=== PATIENT | female | born 1940 | race Two or more races ===

== ENCOUNTER 2016-10-30 16:38 | Inpatient (IN) | payer MEDICARE, MEDICAID ==
[~2016-10-30] VITALS: Ht 165.1 cm; Wt 81.6 kg
[2016-10-30] MEDS ORDERED: LR 1000ml 1,000 ML IV SCH (17:00)
--- NOTE | 2016-10-30 17:04 | Emergency Room Report ---
History of Present Illness General Chief Complaint: Syncope Source: EMS Present Illness HPI 76 YOF [place] for alleged syncopal episode following nausea/ vomiting. No head trauma or other trauma sustained. Patient c/o chills, "shaking". Denies chest pain, SOB, abd pain, palpitations. HPI otherwise limited d/t language, patient Ugandan speaking primarily. Allergies: Coded Allergies: DONEPEZIL (Verified Allergy, Unknown, 10/30/16) PROCAINE (Verified Allergy, Unknown, 10/30/16) Patient History Limited by: language barrier Past Medical History: unable to obtain Past Surgical History: unable to obtain Pertinent Family History: unable to obtain Social History: Denies: alcohol use, drug use, smoking Now: No Immunizations: UTD Reviewed Nursing Documentation: PMH: Agreed, PSxH: Agreed Nursing Documentation-PMH Past Medical History: No Stated History Review of Systems All Other Systems: limited - langauage barrier Physical Exam Vital Signs Date Time Temp Pulse Resp B/P Pulse Ox O2 Delivery O2 Flow Rate FiO2 10/30/16 16:37 98.1 77 20 168/82 98 Room Air Sp02 EP Interpretation: reviewed, abnormal General Appearance: normal inspection, well appearing, alert, GCS 15, non-toxic , mild distress, other - Shaking, diaphoretic Head: normocephalic, atraumatic Eyes: bilateral eye EOMI, bilateral eye PERRL ENT: normal ENT inspection, hearing grossly normal, normal pharynx, no angioedema, normal voice, dry mucus membranes Neck: normal inspection, full range of motion, supple, no meningismus, no bony tend Respiratory: normal inspection, lungs clear, normal breath sounds, no rhonchi, no respiratory distress, no retraction, no accessory muscle use, no wheezing Cardiovascular #1: regular rate, rhythm, no edema Gastrointestinal: normal inspection, normal bowel sounds, non tender, soft, no mass, non-distended, no guarding, no hernia Genitourinary: no CVA tenderness Musculoskeletal: normal inspection, back normal, normal range of motion, Mariah' s Sign negative Neurologic: normal inspection, alert, oriented x3, responsive, green coffee blender III-XII nml as tested, motor strength/tone normal, speech normal Psychiatric: normal inspection, judgement/insight normal, mood/affect normal Skin: normal inspection, warm/dry, palpation normal Lymphatic: normal inspection Medical Decision Making Medicare Attestation Rl Vasquez MD hereby attest that the medical record entry for date of service, 07/14/16 accurately reflects signatures/notations that I made in my capacity as MD when I treated/diagnosed the above listed Medicare beneficiary. I attest that this information is true, accurate and complete to the best of my knowledge. I understand that any falsification, omission, or concealment of material fact may subject me to administrative, civil, or criminal liability. This patient warrants hospital admission for extreme of age and has a condition that cannot be treated as outpatient. Diagnostic Impression: Primary Impression: Syncope Qualified Codes: R55 - Syncope and collapse Additional Impressions: Nausea and vomiting Qualified Codes: R11.2 - Nausea with vomiting, unspecified Hyperglycemia ER Course Syncopal episode preceded by vomiting. VS hypertensive, afebrile DDx: vasovagal, AMI, sepsis PLAN: Labs, ECG, gentle hydration, zofran Likely admission EKG Diagnostic Results Rate: normal Rhythm: NSR ST Segments: no acute changes ASA given to the pt in ED: No Rhythm Strip Diag. Results EP Interpretation: yes Rate: 77 Rhythm: NSR, no PVC's, no ectopy Chest X-Ray Diagnostic Results Findings: other - patient refused CXR Reevaluation Time: 17:48 Last Vital Signs Date Time Temp Pulse Resp B/P Pulse Ox O2 Delivery O2 Flow Rate FiO2 10/30/16 16:37 98.1 77 20 168/82 98 Room Air Status: improved Reevaluation Impression Labs: No leuks. H&H stable. Troponin 0. Patient refused CXR ECG is NSR, no ischemia CT head negative for ICH on ED r eview No additional vomiting here Tolerating PO Endorsed to Dr Hand for syncope/ACS rule out admission to tele bed at 730pm Disposition: ADMITTED INPATIENT Condition: Serious RL VASQUEZ M.D. Oct 30, 2016 17:04
[2016-10-30 17:31] LABS: MEAN CORPUSCULAR HEMOGLOBIN 29.6 PG (27.0-31.0); MEAN CORPUSCULAR HGB CONC 33.2 G/DL (32.0-36.0); MEAN CORPUSCULAR VOLUME 89 FL (80-99); MEAN PLATELET VOLUME 7.5 FL (6.5-10.1); PLATELET COUNT 222 K/UL (150-450); RED BLOOD COUNT 4.67 M/UL (4.20-5.40); RED CELL DISTRIBUTION WIDTH 11.7 % (11.6-14.8); WHITE BLOOD COUNT 6.8 K/UL (4.8-10.8)
[2016-10-30 17:40] LABS: TROPONIN I < 0.30 ng/mL (<=0.30)
[2016-10-30 17:43] LABS: ALANINE AMINOTRANSFERASE 11 U/L (3-33); ALBUMIN/GLOBULIN RATIO 1.4 (1.0-2.7); ANION GAP 22 (5-15); ASPARTATE AMINO TRANSFERASE 17 U/L (5-40); CALCIUM 9.6 mg/dL (8.6-10.2); CARBON DIOXIDE 21 mEQ/L (20-30); CHLORIDE 95 mEQ/L (98-107); CREATININE 0.7 mg/dL (0.5-0.9); HEMOLYSIS 16; POTASSIUM 3.6 mEQ/L (3.4-4.9); SODIUM 138 mEQ/L (135-145); TOTAL PROTEIN 7.6 g/dL (6.6-8.7)
[2016-10-30 17:53] LABS: CKMB 2.4 ng/mL (< 3.8)
[2016-10-30 18:34] LABS: BAND NEUTROPHILS % (MANUAL) 1 % (0-8); BASOPHILS % (MANUAL) 0 % (0-2); EOSINOPHILS % (MANUAL) 0 % (0-3); LYMPHOCYTES % (MANUAL) 9 % (20-45); NEUTROPHILS % (MANUAL) 87 % (45-75); PLATELET ESTIMATE ADEQUATE; PLATELET MORPHOLOGY NORMAL; TOTAL CELLS COUNTED 100
[2016-10-30 19:03] VITALS: BP 132/71
[2016-10-30] MEDS ORDERED: LEXAPRO10 MG ORAL (19:36)
[2016-10-30] MEDS ORDERED: PLAQUENIL200 MG ORAL (19:36)
[2016-10-30] MEDS ORDERED: METOPROLOL SUCC25 MG ORAL (19:36)
[2016-10-30] MEDS ORDERED: MAGNESIUM27 MG PO (19:36)
[2016-10-30] MEDS ORDERED: AMLODIPINE BES2.5 MG ORAL (19:36)
[2016-10-30 21:35] VITALS: BP 135/74
[2016-10-30] MEDS ORDERED: DuoNeb 0.5-3(2.5)mg/3ml neb HHN PRN (21:45)
[2016-10-30] MEDS ORDERED: LORazepam Inj 2mg/ml 1ml IV PRN (21:45)
[2016-10-30] MEDS ORDERED: Nitroglycerin Subl 0.4mg tab (Bottle Of 25) SL PRN (21:45)
[2016-10-30] MEDS ORDERED: Mylanta II UD 30ml ORAL PRN (21:45)
[2016-10-30] MEDS ORDERED: Miralax 17gm pkt ORAL PRN (21:45)
[2016-10-30] MEDS ORDERED: Morphine Sulfate 2mg/ml Inj IVP PRN (21:45)
[2016-10-30 21:58] VITALS: BP 151/56
[2016-10-30] MEDS: Heparin 5000 units/ml inj SUBQ SCH (22:36)
[2016-10-31] VITALS (8 sets, daily range): BP systolic 107–138; BP diastolic 65–80
[2016-10-31 08:04] LABS: MEAN CORPUSCULAR HEMOGLOBIN 28.6 PG (27.0-31.0); MEAN CORPUSCULAR HGB CONC 32.4 G/DL (32.0-36.0); MEAN CORPUSCULAR VOLUME 88 FL (80-99); MEAN PLATELET VOLUME 8.2 FL (6.5-10.1); PLATELET COUNT 268 K/UL (150-450); RED BLOOD COUNT 5.18 M/UL (4.20-5.40); RED CELL DISTRIBUTION WIDTH 11.8 % (11.6-14.8); WHITE BLOOD COUNT 8.1 K/UL (4.8-10.8)
[2016-10-31 08:22] LABS: ALANINE AMINOTRANSFERASE 10 U/L (3-33); ALBUMIN/GLOBULIN RATIO 1.6 (1.0-2.7); ANION GAP 18 (5-15); ASPARTATE AMINO TRANSFERASE 15 U/L (5-40); CALCIUM 9.9 mg/dL (8.6-10.2); CARBON DIOXIDE 23 mEQ/L (20-30); CHLORIDE 99 mEQ/L (98-107); CHOLESTEROL 212 mg/dL (< 200); CREATININE 0.8 mg/dL (0.5-0.9); HEMOLYSIS 5; LDL CHOLESTEROL (CALC.) 128 mg/dL (60-99); SODIUM 140 mEQ/L (135-145); TOTAL PROTEIN 7.6 g/dL (6.6-8.7)
[2016-10-31 08:32] LABS: THYROID STIMULATING HORMONE 0.639 uIU/mL (0.300-4.500)
[2016-10-31 08:33] LABS: INR 1.1 (0.9-1.1); PROTHROMBIN TIME 11.7 SEC (9.30-11.50)
--- NOTE | 2016-10-31 09:33 | Diagnostic Imaging Report ---
Indication: SYNCOPE Technique: spiral acquisitions obtained through the brain. Angled axial and coronal 5 x 5 mm slices were reconstructed. No IV contrast utilized. Radiation dose was minimized using automated exposure control Total dose length product thousand 3 at 69 mGycm. CTDIvol(s) 70 mGy Comparison: none FINDINGS: No acute hemorrhage or edema. No mass effect or midline shift. There is age-related enlargement of the ventricles and extra axial CSF spaces. There is periventricular deep white matter ischemic change. Normal taylor-white differentiation. Visualized orbits are unremarkable. Visualized sinuses are unremarkable. Intact calvarium. There is right maxillary sinus mucosal thickening. Unusual ossific density is seen centrally within the right maxillary sinus, could indicate an ectopic tooth IMPRESSION: Chronic and age-related changes. Negative for acute intracranial bleed or mass effect Sinus disease. Unusual ossific density within the right maxillary sinus, possibly an ectopic tooth. This agrees with the preliminary interpretation provided overnight by Dr. Husain The CT scanner at [facility] is accredited by the [employer] and the scans are performed using protocols designed to limit radiation exposure to as low as reasonably achievable to attain images of sufficient resolution adequate for diagnostic evaluation
[2016-10-31] MEDS: Heparin 5000 units/ml inj SUBQ SCH ×2 (09:48→20:44)
--- NOTE | 2016-10-31 10:05 | Diagnostic Imaging Report ---
Indication: SOB cough Technique: One view of the chest Comparison: none Findings: Positioning is suboptimal. Exam not repeated, per patient request. There is thoracic scoliotic deformity. There is some atelectasis at the left lung base. Lungs and pleural spaces are otherwise clear. Heart size is normal. Impression: No acute process This agrees with the preliminary interpretation provided by the emergency room physician
[2016-10-31 11:06] LABS: BAND NEUTROPHILS % (MANUAL) 0 % (0-8); BASOPHILS % (MANUAL) 0 % (0-2); EOSINOPHILS % (MANUAL) 0 % (0-3); LYMPHOCYTES % (MANUAL) 11 % (20-45); NEUTROPHILS % (MANUAL) 87 % (45-75); PLATELET ESTIMATE ADEQUATE; TOTAL CELLS COUNTED 100
[2016-10-31 11:07] LABS: PLATELET MORPHOLOGY NORMAL
--- NOTE | 2016-10-31 12:13 | Neurology Progress Note ---
Objective Physical Exam Last Vital Signs Date Time Temp Pulse Resp B/P Pulse Ox O2 Delivery O2 Flow Rate FiO2 10/31/16 11:36 97.9 85 18 118/65 96 Room Air Laboratory Tests Test 10/30/16 17:11 10/31/16 06:40 White Blood Count 6.8 K/UL (4.8-10.8) 8.1 K/UL (4.8-10.8) Red Blood Count 4.67 M/UL (4.20-5.40) 5.18 M/UL (4.20-5.40) Hemoglobin 13.8 G/DL (12.0-16.0) 14.8 G/DL (12.0-16.0) Hematocrit 41.5 % (37.0-47.0) 45.6 % (37.0-47.0) Mean Corpuscular Volume 89 FL (80-99) 88 FL (80-99) Mean Corpuscular Hemoglobin 29.6 PG (27.0-31.0) 28.6 PG (27.0-31.0) Mean Corpuscular Hemoglobin Concent 33.2 G/DL (32.0-36.0) 32.4 G/DL (32.0-36.0) Red Cell Distribution Width 11.7 % (11.6-14.8) 11.8 % (11.6-14.8) Platelet Count 222 K/UL (150-450) 268 K/UL (150-450) Mean Platelet Volume 7.5 FL (6.5-10.1) 8.2 FL (6.5-10.1) Neutrophils (%) (Auto) % (45.0-75.0) % (45.0-75.0) Lymphocytes (%) (Auto) % (20.0-45.0) % (20.0-45.0) Monocytes (%) (Auto) % (1.0-10.0) % (1.0-10.0) Eosinophils (%) (Auto) % (0.0-3.0) % (0.0-3.0) Basophils (%) (Auto) % (0.0-2.0) % (0.0-2.0) Differential Total Cells Counted 100 100 Neutrophils % (Manual) 87 % (45-75) H 87 % (45-75) H Lymphocytes % (Manual) 9 % (20-45) L 11 % (20-45) L Monocytes % (Manual) 3 % (1-10) 2 % (1-10) Eosinophils % (Manual) 0 % (0-3) 0 % (0-3) Basophils % (Manual) 0 % (0-2) 0 % (0-2) Band Neutrophils 1 % (0-8) 0 % (0-8) Platelet Estimate Adequate Adequate Platelet Morphology Normal Normal Red Blood Cell Morphology Normal Normal Sodium Level 138 mEQ/L (135-145) 140 mEQ/L (135-145) Potassium Level 3.6 mEQ/L (3.4-4.9) 4.0 mEQ/L (3.4-4.9) Chloride Level 95 mEQ/L (98-107) L 99 mEQ/L (98-107) Carbon Dioxide Level 21 mEQ/L (20-30) 23 mEQ/L (20-30) Anion Gap 22 (5-15) H 18 (5-15) H Blood Urea Nitrogen 11 mg/dL (7-23) 13 mg/dL (7-23) Creatinine 0.7 mg/dL (0.5-0.9) 0.8 mg/dL (0.5-0.9) Estimat Glomerular Filtration Rate mL/min (>60) mL/min (>60) Glucose Level 195 mg/dL (74-106) H 219 mg/dL (74-106) H Calcium Level 9.6 mg/dL (8.6-10.2) 9.9 mg/dL (8.6-10.2) Total Bilirubin 0.6 mg/dL (0.0-1.2) 0.5 mg/dL (0.0-1.2) Aspartate Amino Transf (AST/SGOT) 17 U/L (5-40) 15 U/L (5-40) Alanine Aminotransferase (ALT/SGPT) 11 U/L (3-33) 10 U/L (3-33) Alkaline Phosphatase 67 U/L (35-104) 65 U/L (35-104) Total Creatine Kinase 63 U/L (26-140) Creatine Kinase MB 2.4 ng/mL (< 3.8) Creatine Kinase MB Relative Index 3.8 Troponin I < 0.30 ng/mL (<=0.30) Total Protein 7.6 g/dL (6.6-8.7) 7.6 g/dL (6.6-8.7) Albumin 4.5 g/dL (3.5-5.2) 4.7 g/dL (3.5-5.2) Globulin 3.1 g/dL 2.9 g/dL Albumin/Globulin Ratio 1.4 (1.0-2.7) 1.6 (1.0-2.7) Prothrombin Time 11.7 SEC (9.30-11.50) H Prothromb Time International Ratio 1.1 (0.9-1.1) Activated Partial Thromboplast Time 27 SEC (23-33) Triglycerides Level 63 mg/dL (< 150) Cholesterol Level 212 mg/dL (< 200) H LDL Cholesterol 128 mg/dL (60-99) H HDL Cholesterol 71 mg/dL (> 60) H Cholesterol/HDL Ratio 3.0 (3.3-4.4) L Thyroid Stimulating Hormone (TSH) 0.639 uIU/mL (0.300-4.500) Impression/Recommendations Recommendations #[id number] ortost BP asa 81 statins carotid duplex pt/ot KATHY WHITE Oct 31, 2016 12:13
[2016-10-31] MEDS: Aspirin EC 81mg tab ORAL SCH (13:09)
[2016-10-31] MEDS: Meclizine 25mg tab ORAL SCH ×2 (13:09→18:09)
--- NOTE | 2016-10-31 15:21 | Consultation ---
History of Present Illness General Date patient seen: Oct 31, 2016 Chief Complaint: Syncope Reason for Consultation: inpatient managemet Present Illness HPI 76 with pmhx of HTN and Depression brought in by paramedics for and episode of syncope following nausea/vomiting. Pt doesn't recall eating anything unusual. Denies chest pain, SOB, abd pain, palpitations. No head trauma or other trauma sustained. Pt is admitted to telemetry to rule out cardiac arrhythmias or cva and seizures. Allergies: Coded Allergies: DONEPEZIL (Verified Allergy, Unknown, 10/30/16) PROCAINE (Verified Allergy, Unknown, 10/30/16) Medication History Scheduled Amlodipine Besylate* (Amlodipine Besylate*), 2.5 MG ORAL DAILY, (Reported) Escitalopram Oxalate* (Lexapro*), 10 MG ORAL DAILY, (Reported) Hydroxychloroquine Sulfate* (Plaquenil*), 200 MG ORAL DAILY, (Reported) Metoprolol Succinate* (Metoprolol Succinate*), 12.5 MG ORAL DAILY, (Reported) Miscellaneous Medications Magnesium Amino Acid Chelate (Magnesium), 27 MG PO, (Reported) Patient History Healthcare decision maker pt alert and oriented Resuscitation status Full Code Advanced Directive on File Past Medical/Surgical History Past Medical/Surgical History: (1) Nausea and vomiting (2) Syncope Review of Systems All Other Systems: negative except mentioned in HPI Physical Exam General Appearance: WD/WN Lines, tubes and drains: peripheral, central line HEENT: normocephalic, atraumatic Neck: non-tender, normal alignment Respiratory/Chest: chest wall non-tender, lungs clear, normal breath sounds Cardiovascular/Chest: normal peripheral pulses, normal rate Abdomen: normal bowel sounds, soft Genitourinary/Rectal: normal genital exam, heme negative stool Extremities: normal range of motion Last 24 Hour Vital Signs Date Time Temp Pulse Resp B/P Pulse Ox O2 Delivery O2 Flow Rate FiO2 10/31/16 13:18 85 128/67 89 107/72 90 107/72 10/31/16 13:16 85 89 90 10/31/16 12:39 93 118/65 117/72 10/31/16 12:00 83 10/31/16 11:36 97.9 85 18 118/65 96 Room Air 10/31/16 09:44 77 114/72 10/31/16 09:43 77 114/72 10/31/16 08:45 97.7 77 18 114/72 97 Room Air 10/31/16 08:09 83 10/31/16 04:00 98.0 20 138/80 98 Room Air 10/31/16 04:00 81 10/31/16 00:00 91 10/31/16 00:00 97.0 74 20 127/77 97 Room Air 10/30/16 21:58 97.3 78 21 151/56 98 Room Air 10/30/16 21:37 97.9 75 19 135/74 96 Room Air 10/30/16 21:35 97.9 75 19 135/74 96 Room Air 10/30/16 19:03 98.0 75 20 132/71 94 Room Air 10/30/16 16:37 98.1 77 20 168/82 98 Room Air Intake and Output 10/30/16 10/31/16 19:00 07:00 Intake Total 200 ml Balance 200 ml IV Total 200 ml # Voids 2 Laboratory Tests Test 10/30/16 17:11 10/31/16 06:40 White Blood Count 6.8 K/UL (4.8-10.8) 8.1 K/UL (4.8-10.8) Red Blood Count 4.67 M/UL (4.20-5.40) 5.18 M/UL (4.20-5.40) Hemoglobin 13.8 G/DL (12.0-16.0) 14.8 G/DL (12.0-16.0) Hematocrit 41.5 % (37.0-47.0) 45.6 % (37.0-47.0) Mean Corpuscular Volume 89 FL (80-99) 88 FL (80-99) Mean Corpuscular Hemoglobin 29.6 PG (27.0-31.0) 28.6 PG (27.0-31.0) Mean Corpuscular Hemoglobin Concent 33.2 G/DL (32.0-36.0) 32.4 G/DL (32.0-36.0) Red Cell Distribution Width 11.7 % (11.6-14.8) 11.8 % (11.6-14.8) Platelet Count 222 K/UL (150-450) 268 K/UL (150-450) Mean Platelet Volume 7.5 FL (6.5-10.1) 8.2 FL (6.5-10.1) Neutrophils (%) (Auto) % (45.0-75.0) % (45.0-75.0) Lymphocytes (%) (Auto) % (20.0-45.0) % (20.0-45.0) Monocytes (%) (Auto) % (1.0-10.0) % (1.0-10.0) Eosinophils (%) (Auto) % (0.0-3.0) % (0.0-3.0) Basophils (%) (Auto) % (0.0-2.0) % (0.0-2.0) Differential Total Cells Counted 100 100 Neutrophils % (Manual) 87 % (45-75) H 87 % (45-75) H Lymphocytes % (Manual) 9 % (20-45) L 11 % (20-45) L Monocytes % (Manual) 3 % (1-10) 2 % (1-10) Eosinophils % (Manual) 0 % (0-3) 0 % (0-3) Basophils % (Manual) 0 % (0-2) 0 % (0-2) Band Neutrophils 1 % (0-8) 0 % (0-8) Platelet Estimate Adequate Adequate Platelet Morphology Normal Normal Red Blood Cell Morphology Normal Normal Sodium Level 138 mEQ/L (135-145) 140 mEQ/L (135-145) Potassium Level 3.6 mEQ/L (3.4-4.9) 4.0 mEQ/L (3.4-4.9) Chloride Level 95 mEQ/L (98-107) L 99 mEQ/L (98-107) Carbon Dioxide Level 21 mEQ/L (20-30) 23 mEQ/L (20-30) Anion Gap 22 (5-15) H 18 (5-15) H Blood Urea Nitrogen 11 mg/dL (7-23) 13 mg/dL (7-23) Creatinine 0.7 mg/dL (0.5-0.9) 0.8 mg/dL (0.5-0.9) Estimat Glomerular Filtration Rate mL/min (>60) mL/min (>60) Glucose Level 195 mg/dL (74-106) H 219 mg/dL (74-106) H Calcium Level 9.6 mg/dL (8.6-10.2) 9.9 mg/dL (8.6-10.2) Total Bilirubin 0.6 mg/dL (0.0-1.2) 0.5 mg/dL (0.0-1.2) Aspartate Amino Transf (AST/SGOT) 17 U/L (5-40) 15 U/L (5-40) Alanine Aminotransferase (ALT/SGPT) 11 U/L (3-33) 10 U/L (3-33) Alkaline Phosphatase 67 U/L (35-104) 65 U/L (35-104) Total Creatine Kinase 63 U/L (26-140) Creatine Kinase MB 2.4 ng/mL (< 3.8) Creatine Kinase MB Relative Index 3.8 Troponin I < 0.30 ng/mL (<=0.30) Total Protein 7.6 g/dL (6.6-8.7) 7.6 g/dL (6.6-8.7) Albumin 4.5 g/dL (3.5-5.2) 4.7 g/dL (3.5-5.2) Globulin 3.1 g/dL 2.9 g/dL Albumin/Globulin Ratio 1.4 (1.0-2.7) 1.6 (1.0-2.7) Prothrombin Time 11.7 SEC (9.30-11.50) H Prothromb Time International Ratio 1.1 (0.9-1.1) Activated Partial Thromboplast Time 27 SEC (23-33) Triglycerides Level 63 mg/dL (< 150) Cholesterol Level 212 mg/dL (< 200) H LDL Cholesterol 128 mg/dL (60-99) H HDL Cholesterol 71 mg/dL (> 60) H Cholesterol/HDL Ratio 3.0 (3.3-4.4) L Vitamin B12 Level 838 pg/mL (211-946) Thyroid Stimulating Hormone (TSH) 0.639 uIU/mL (0.300-4.500) Rheumatoid Factor Screen Pending Anti-Nuclear Antibody Screen Pending Height (Feet): 5 Height (Inches): 5.00 Weight (Pounds): 180 Medications Current Medications Medications (Trade) Dose Ordered Sig/Robbie Route PRN Reason Start Time Stop Time Status Last Admin Dose Admin Acetaminophen (Tylenol) 650 mg Q4H PRN ORAL fever 10/30/16 21:45 11/29/16 21:44 Al Hydroxide/Mg Hydroxide (Mylanta II) 30 ml Q6H PRN ORAL dyspepsia 10/30/16 21:45 11/29/16 21:44 Albuterol/ Ipratropium (DuoNeb 0.5-3(2.5)mg/3ml) 3 ml EVERY 4 HOURS PRN HHN Shortness of Breath 10/30/16 21:45 11/04/16 21:44 Amlodipine Besylate (Norvasc) 2.5 mg DAILY ORAL 10/31/16 09:00 11/30/16 08:59 Aspirin (Ecotrin) 81 mg DAILY ORAL 10/31/16 12:30 11/30/16 12:29 10/31/16 13:09 Clonidine HCl (Catapres) 0.1 mg Q4H PRN ORAL For High Blood Pressure 10/30/16 21:45 11/29/16 21:44 Dextrose (Dextrose 50%) STAT PRN IV Hypoglycemia 10/30/16 21:45 11/29/16 21:44 Escitalopram Oxalate (Lexapro) 10 mg DAILY@1999 ORAL 10/31/16 20:00 11/30/16 19:59 Heparin Sodium (Porcine) (Heparin 5000 units/ml) 5,000 units EVERY 12 HOURS SUBQ 10/30/16 22:00 11/29/16 21:59 10/31/16 09:48 Hydroxychloroquine Sulfate (Plaquenil) 200 mg DAILY ORAL 10/31/16 09:00 11/30/16 08:59 10/31/16 09:45 Lorazepam (Ativan 2mg/ml 1ml) 0.5 mg Q4H PRN IV For Anxiety 10/30/16 21:45 11/06/16 21:44 Meclizine HCl (Antivert) 12.5 mg TID ORAL 10/31/16 13:00 11/30/16 12:59 10/31/16 13:09 Metoprolol Succinate (Toprol XL) 12.5 mg DAILY ORAL 10/31/16 09:00 11/30/16 08:59 Morphine Sulfate (Morphine Sulfate) 1 mg EVERY 4 HOURS PRN IVP For Pain 7-10 10/30/16 21:45 11/06/16 21:44 Nitroglycerin (Ntg) 0.4 mg Q5M X 3 DOSES PRN SL Prn Chest Pain 10/30/16 21:45 11/29/16 21:44 Ondansetron HCl (Zofran) 4 mg Q6H PRN IVP Nausea & Vomiting 10/30/16 21:45 11/29/16 21:44 Polyethylene Glycol (Miralax) 17 gm HSPRN PRN ORAL Constipation 10/30/16 21:45 11/29/16 21:44 Temazepam (Restoril) 15 mg HSPRN PRN ORAL Insomnia 10/30/16 21:45 11/06/16 21:44 Assessment/Plan Problem List: (1) Acute encephalopathy ICD Codes: G93.40 - Encephalopathy, unspecified SNOMED: 3899967 (2) Syncope ICD Codes: R55 - Syncope and collapse SNOMED: [id number] Qualifiers: Qualified Codes: R55 - Syncope and collapse (3) Nausea and vomiting ICD Codes: R11.2 - Nausea with vomiting, unspecified SNOMED: 47361327 Qualifiers: Qualified Codes: R11.2 - Nausea with vomiting, unspecified Assessment/Plan 2d echo doppler of carotid artery neuro and cardio evaluation JADA GIRARD Oct 31, 2016 15:21
--- NOTE | 2016-10-31 15:39 | History & Physical ---
History and Physical History & Physicial Bj Hand MD Oct 31, 2016 15:39
--- NOTE | 2016-10-31 19:48 | Consultation ---
DATE OF CONSULTATION: 10/31/2016 NEUROLOGICAL CONSULTATION REQUESTING PHYSICIAN: Bj Hand M.D. HISTORY OF PRESENT ILLNESS: The patient is a 76-year-old Nepalese speaking female seen neurological consultation to evaluate the transient loss of consciousness. According to the patient, yesterday she woke up in the morning, feeling somewhat not well, she did not have breakfast, anticipating to have a blood test with with her primary physician, Dr. Fausto Quiles. She had mild nausea. She was able to drink couple cups of water, felt no improvement, and she continued with her usual activities, she went to the park to organized some republican. At that point, she started to have recurrent vomiting, developed headaches, and had some increased blood pressure. The patient denies having loss of consciousness but according to paramedics who summoned to the scene she had a brief loss of consciousness. The patient was brought to this hospital with vital signs stable. Blood pressure 168/82, temperature 98.1. Stat CT of the brain was obtained. This revealed moderate atrophy, ischemic cerebrovascular disease. Laboratory work was obtained revealing normal CBC study, mild coagulopathy PT of 11.7. Chemistry panel with a chloride 95, anion gap elevated at 22, and blood sugar was 195. Normal troponin. Elevated lipids with cholesterol 212 and LDL . Normal TSH. Following admission until present, her vital signs remained unchanged. Chest x-ray revealed no acute process, there was some atelectasis left lung base, otherwise normal. PAST MEDICAL HISTORY: The patient has a history of SLE, she is on Plaquenil. History of depression with Lexapro 10 mg twice a day, Klonopin daily. History of hypertension taking metoprolol. The patient was seen by itself by conduit helper Dr. John and entry level sales associate Dr. Dr. Fausto Quiles . SOCIAL HISTORY: She lives alone, physically and socially active. No alcohol. No drug abuse. Nonsmoker. FAMILY HISTORY: Noncontributory. REVIEW OF SYMPTOMS: At this time, the patient still has slight weakness, when getting up she would developed nausea, dizziness. The patient noticed some instability of gait, recalling that lately she had some issue with gait that she was leaning to one side but feels embarrassed to use cane. Denies chest pain or palpitations. Denies respiratory problems. Denies abdominal pain or discomfort. No urine or bowel incontinence. PHYSICAL EXAMINATION: GENERAL: A well-developed, well-nourished female, not in acute distress, lying comfortably in bed. VITAL SIGNS: Now stable. Blood pressure 123/70, respirations 14. HEENT: Head normocephalic. No evidence of trauma. Eyes, ears, and throat are clear. NECK: Supple. No meningeal signs. MUSCULOSKELETAL: Unremarkable. There are no deformities. Peripheral pulses, 1+ symmetric. MENTAL STATUS: Alert and oriented x3. Speech is fluent. Language intact. There is no aphasia. No apraxia. Reasonable historian. CRANIAL NERVE II: Pupils responding to light and accommodation. Extraocular movement are intact. No nystagmus. CRANIAL NERVE V: Normal corneal responses. CRANIAL NERVE VII: No facial asymmetry. CRANIAL NERVE VIII: Grossly normal hearing. The patient helped to get up. At that point, she started to feel nausea and generalized weakness, asked to put her back to bed CRANIAL NERVES X THROUGH XII: Within normal limits. Tongue is in midline. MOTOR EXAMINATION: Revealed a normal muscle tone and strength in all extremities. No involuntary movement. Deep reflexes 1+ symmetric with downgoing toes on both sides. Sensory exam normal to pinprick and light touch. Gait is slow and somewhat wobbly on turns, unstable. IMPRESSION: 1. History of syncopal episode, probably vasovagal. 2. New onset of generalized weakness, positional nausea and vomiting, rule out orthostatic , rule out labyrinthitis. 3. Hypertension. 4. Depression. 5. History of systemic lupus erythematosus. 6. Hyperglycemia. 7. Hyperlipidemia. RECOMMENDATION: 1. Start aspirin 81 mg daily. 2. Statins. 3. Meclizine 12.5 mg. 4. PT/OT, mobility protocol. 5. Orthostatic blood pressure measurement. 6. Carotid duplex study. 7. Cardiac monitoring to rule out bradyarrhythmia. Thank you for allowing me to see this interesting patient in neurological consultation. Dangelo Huston M.D. DR: Nancy JOB#: [id number] CC:
--- NOTE | 2016-10-31 21:08 | History and Physical Report ---
DATE OF ADMISSION: 10/30/2016 CHIEF COMPLAINT: Syncopal episode. HISTORY OF PRESENT ILLNESS: This is a 76-year-old very delightful, Vincentian-speaking female with past medical history significant for hypertension and depression who was presented to the emergency room via ambulance after having a syncopal episode following with nausea and vomiting. The patient does not recall eating anything unusual. She denies any chest pain or shortness of breath. Denies any abdominal pain or palpitations. Denies any head or neck trauma. Shortly after initial evaluation in the emergency, the patient was admitted to the hospital with a syncopal episode and possible cardiac arrhythmias versus orthostatic hypertension. PAST MEDICAL HISTORY AND PAST SURGICAL HISTORY: As above. History of hypertension and depression. MEDICATIONS: Medications at home significant for amlodipine, Lexapro, Plaquenil, and metoprolol. ALLERGIES: Procaine as well as . SOCIAL HISTORY: No smoking, alcohol, or drugs. FAMILY HISTORY: Noncontributory. REVIEW OF SYSTEMS: Mostly as above. Denies any dysuria, frequency, or hematochezia. Denies any hemoptysis or hematochezia. Denies any palpitation. Denies any double vision. Denies any suicidal or homicidal sedation. Denies any loss of consciousness except a syncopal episode recently. PHYSICAL EXAMINATION: VITAL SIGNS: On admission is significant for temperature 98.1, pulse 77, respirations 20, and blood pressure 168/82. GENERAL: The patient is awake and responsive, not in acute distress. HEENT: Pupils are equal and reactive to light. Extraocular muscles are intact. NECK: Supple. No JVD. LUNGS: Good air entry. No wheezing or rales. HEART: S1 and S2. Regular rhythm. No gallops. ABDOMEN: Soft, nondistended, and nontender. Positive bowel sounds. EXTREMITIES: No cyanosis, clubbing, or edema. NEUROLOGIC: Cranial nerves II through XII was intact. Moves all four extremities. Gait is intact. LABORATORY DATA: On admission WBC of 6.8, hemoglobin 13, hematocrit 41, and platelet 222,000. Sodium 138, potassium 2.6, chloride 95, bicarbonate 21, BUN 11, creatinine 0.7, and glucose 195. Liver functions essentially unremarkable. First troponin less than 0.03. Cholesterol is 212, LDL 128, and HDL is 71. TSH is 0.639. PT of 11, INR 1.1, and PTT of 27. The patient's chest x-ray, no acute cardiopulmonary disease. CT of the head without contrast shows chronic age-related changes. Negative for acute intracranial bleed or mass or effect. Sinus disease, unusual density within the right maxillary sinus, possible ectopic too. EKG is still pending. ASSESSMENT: 1. Syncopal episode, possible orthostatic hypertension. 2. Hypertension. 3. Depression. PLAN: Admit the patient to telemetry. We will follow up laboratory. The patient has been seen by Dr. Vásquez from Pulmonary Critical Care and Dr. Dangelo Huston from neurology. We monitor laboratory. Cardiology consultation with Dr. Lomas and we will further discuss with the patient with regard to medications intake at home including Plaquenil and . She was not very clear. Try to obtain the records from the primary doctor. Code status, Full Code. DVT prophylaxis, heparin subcutaneous. Bj Hand M.D. DR: CARLOS JOB#: [id number] CC:
[2016-11-01] VITALS: BP 113/71
[2016-11-01 04:00] VITALS: BP 120/74
[2016-11-01 08:00] VITALS: BP 148/78
[2016-11-01] MEDS: Heparin 5000 units/ml inj SUBQ SCH (09:00)
[2016-11-01] MEDS: Meclizine 25mg tab ORAL SCH ×2 (09:09→14:37)
[2016-11-01] MEDS: Aspirin EC 81mg tab ORAL SCH (09:10)
--- NOTE | 2016-11-01 10:58 | Neurology Progress Note ---
Interim History Interim History ROS Limited/Unobtainable: No Complaints: feel better Events: ambulate with pt/ot Objective Physical Exam Last Vital Signs Date Time Temp Pulse Resp B/P Pulse Ox O2 Delivery O2 Flow Rate FiO2 11/01/16 09:10 67 148/78 11/01/16 08:00 98.0 17 Room Air 11/01/16 04:00 96 General: well developed, well nourished, no acute distress Head: normocophalic, atraumatic Neck: no rigidity Neurologic Exam Mental Status: awake, alert, oriented x4, normal cognition, good mathematical skills, normal recent memory, normal remote memory, preserved visuospatial function Speech: normal speech, no dysarthia Language: normal language, no aphasia Cranial Nerve II: fundus normal, visual ruiz, no papilledema Cranial Nerves III, IV, : PERRLA, EOMI, pupils Cranial Nerve V: normal facial sensations, temporales function normal, masseters function normal, pterygoids function normal Cranial Nerve VII: no facial asymmetry, normal facial expressions Cranial Nerve VIII: normal hearing, no nystagmus Cranial Nerve IX: normal palate elevation, gag response Cranial Nerve X: no voice hoarseness Cranial Nerve XI: SCM symmetric, trapezii function normal Cranial Nerve XII: tongue midline, no tongue atrophy/fasciculations Motor System: normal muscle tone, strength 5/5, no involuntary movement, no muscle wasting Sensory: normal pinprick, normal light touch Coordination: normal finger to nose bilaterally, normal heel to odom bilaterally, other Deep Tendon Reflexes: 0 ankle (L), 0 ankle (R), 0 bicep (L), 0 bicep (R), 0 brachioradialis (L), 0 brachioradialis (R), 0 knee (L), 0 knee (R), 0 tricep (L) , 0 tricep (R) Stance: normal Gait: stable, normal regular, heel + toe gait, other - sl wabbly Impression/Recommendations Problems: (1) Syncope, vasovagal (2) Gait abnormality Status: stable Recommendations #[id number] ortost BP asa 81 statins carotid duplex done pt/ot neuro stable KATHY WHITE Nov 01, 2016 10:58
--- NOTE | 2016-11-01 11:46 | Pulmonology Progress Note ---
Assessment/Plan Problems: (1) Acute encephalopathy (2) Syncope (3) Nausea and vomiting Assessment/Plan neuro consult appreciated awaiting Cardio/ Dr. Maradiaga notified asymptomatic echo 55%, doppler of carotid noted Subjective ROS Limited/Unobtainable: No Interval Events: walking in the hallway Allergies: Coded Allergies: DONEPEZIL (Verified Allergy, Unknown, 10/30/16) PROCAINE (Verified Allergy, Unknown, 10/30/16) Objective Last 24 Hour Vital Signs Date Time Temp Pulse Resp B/P Pulse Ox O2 Delivery O2 Flow Rate FiO2 11/01/16 09:10 67 148/78 11/01/16 09:09 67 148/78 11/01/16 08:00 98.0 68 17 148/78 Room Air 11/01/16 07:39 74 11/01/16 04:00 97.5 60 20 120/74 96 Room Air 11/01/16 04:00 65 11/01/16 01:00 68 67 11/01/16 00:00 98.0 70 20 113/71 94 Room Air 11/01/16 00:00 70 10/31/16 20:05 81 18 Room Air 10/31/16 20:00 98.1 74 18 123/77 94 Room Air 10/31/16 20:00 80 10/31/16 16:00 74 10/31/16 16:00 97.7 72 20 117/71 93 Room Air 10/31/16 16:00 72 73 77 10/31/16 13:18 85 128/67 89 107/72 90 107/72 10/31/16 13:16 85 89 90 10/31/16 12:39 93 118/65 117/72 10/31/16 12:00 83 Intake and Output 10/31/16 11/01/16 19:00 07:00 Intake Total 240 ml 480 ml Balance 240 ml 480 ml Intake Oral 240 ml 480 ml # Voids 1 5 General Appearance: WD/WN HEENT: normocephalic, atraumatic Respiratory/Chest: chest wall non-tender, lungs clear Breasts: no masses Cardiovascular: normal peripheral pulses, normal rate Abdomen: normal bowel sounds, soft, non tender, no organomegaly Current Medications Medications (Trade) Dose Ordered Sig/Robbie Route PRN Reason Start Time Stop Time Status Last Admin Dose Admin Acetaminophen (Tylenol) 650 mg Q4H PRN ORAL fever 10/30/16 21:45 11/29/16 21:44 Al Hydroxide/Mg Hydroxide (Mylanta II) 30 ml Q6H PRN ORAL dyspepsia 10/30/16 21:45 11/29/16 21:44 Albuterol/ Ipratropium (DuoNeb 0.5-3(2.5)mg/3ml) 3 ml EVERY 4 HOURS PRN HHN Shortness of Breath 10/30/16 21:45 11/04/16 21:44 Amlodipine Besylate (Norvasc) 2.5 mg DAILY ORAL 10/31/16 09:00 11/30/16 08:59 11/01/16 09:10 Aspirin (Ecotrin) 81 mg DAILY ORAL 10/31/16 12:30 11/30/16 12:29 11/01/16 09:10 Clonidine HCl (Catapres) 0.1 mg Q4H PRN ORAL For High Blood Pressure 10/30/16 21:45 11/29/16 21:44 Dextrose (Dextrose 50%) STAT PRN IV Hypoglycemia 10/30/16 21:45 11/29/16 21:44 Escitalopram Oxalate (Lexapro) 10 mg DAILY@1999 ORAL 10/31/16 20:00 11/30/16 19:59 10/31/16 20:42 Heparin Sodium (Porcine) (Heparin 5000 units/ml) 5,000 units EVERY 12 HOURS SUBQ 10/30/16 22:00 11/29/16 21:59 10/31/16 20:44 Hydroxychloroquine Sulfate (Plaquenil) 200 mg DAILY ORAL 10/31/16 09:00 11/30/16 08:59 11/01/16 09:10 Lorazepam (Ativan 2mg/ml 1ml) 0.5 mg Q4H PRN IV For Anxiety 10/30/16 21:45 11/06/16 21:44 Meclizine HCl (Antivert) 12.5 mg TID ORAL 10/31/16 13:00 11/30/16 12:59 11/01/16 09:09 Metoprolol Succinate (Toprol XL) 12.5 mg DAILY ORAL 10/31/16 09:00 11/30/16 08:59 11/01/16 09:09 Morphine Sulfate (Morphine Sulfate) 1 mg EVERY 4 HOURS PRN IVP For Pain 7-10 10/30/16 21:45 11/06/16 21:44 Nitroglycerin (Ntg) 0.4 mg Q5M X 3 DOSES PRN SL Prn Chest Pain 10/30/16 21:45 11/29/16 21:44 Ondansetron HCl (Zofran) 4 mg Q6H PRN IVP Nausea & Vomiting 10/30/16 21:45 11/29/16 21:44 Polyethylene Glycol (Miralax) 17 gm HSPRN PRN ORAL Constipation 10/30/16 21:45 11/29/16 21:44 Temazepam (Restoril) 15 mg HSPRN PRN ORAL Insomnia 10/30/16 21:45 11/06/16 21:44 11/01/16 01:17 JADA GIRARD Nov 01, 2016 11:46
[2016-11-01 12:00] VITALS: BP 134/71
--- NOTE | 2016-11-01 14:29 | Internal Med Progress Note ---
Subjective Physician Name GarciaLatoya Attending Physician Bj Hand MD Current Medications Medications (Trade) Dose Ordered Sig/Robbie Route PRN Reason Start Time Stop Time Status Last Admin Dose Admin Acetaminophen (Tylenol) 650 mg Q4H PRN ORAL fever 10/30/16 21:45 11/29/16 21:44 Al Hydroxide/Mg Hydroxide (Mylanta II) 30 ml Q6H PRN ORAL dyspepsia 10/30/16 21:45 11/29/16 21:44 Albuterol/ Ipratropium (DuoNeb 0.5-3(2.5)mg/3ml) 3 ml EVERY 4 HOURS PRN HHN Shortness of Breath 10/30/16 21:45 11/04/16 21:44 Amlodipine Besylate (Norvasc) 2.5 mg DAILY ORAL 10/31/16 09:00 11/30/16 08:59 11/01/16 09:10 Aspirin (Ecotrin) 81 mg DAILY ORAL 10/31/16 12:30 11/30/16 12:29 11/01/16 09:10 Atorvastatin Calcium (Lipitor) 10 mg BEDTIME ORAL 11/01/16 21:00 12/01/16 20:59 Clonidine HCl (Catapres) 0.1 mg Q4H PRN ORAL For High Blood Pressure 10/30/16 21:45 11/29/16 21:44 Dextrose (Dextrose 50%) STAT PRN IV Hypoglycemia 10/30/16 21:45 11/29/16 21:44 Dextrose (Dextrose 50%) STAT PRN IV Hypoglycemia 11/01/16 11:45 12/01/16 11:44 Escitalopram Oxalate (Lexapro) 10 mg DAILY@1999 ORAL 10/31/16 20:00 11/30/16 19:59 10/31/16 20:42 Heparin Sodium (Porcine) (Heparin 5000 units/ml) 5,000 units EVERY 12 HOURS SUBQ 10/30/16 22:00 11/29/16 21:59 10/31/16 20:44 Hydroxychloroquine Sulfate (Plaquenil) 200 mg DAILY ORAL 10/31/16 09:00 11/30/16 08:59 11/01/16 09:10 Insulin Aspart (NovoLOG) BEFORE MEALS AND HS SUBQ 11/01/16 16:30 12/01/16 16:29 Lorazepam (Ativan 2mg/ml 1ml) 0.5 mg Q4H PRN IV For Anxiety 10/30/16 21:45 11/06/16 21:44 Meclizine HCl (Antivert) 12.5 mg TID ORAL 10/31/16 13:00 11/30/16 12:59 11/01/16 09:09 Metoprolol Succinate (Toprol XL) 12.5 mg DAILY ORAL 10/31/16 09:00 11/30/16 08:59 11/01/16 09:09 Morphine Sulfate (Morphine Sulfate) 1 mg EVERY 4 HOURS PRN IVP For Pain 7-10 10/30/16 21:45 11/06/16 21:44 Nitroglycerin (Ntg) 0.4 mg Q5M X 3 DOSES PRN SL Prn Chest Pain 10/30/16 21:45 11/29/16 21:44 Ondansetron HCl (Zofran) 4 mg Q6H PRN IVP Nausea & Vomiting 10/30/16 21:45 11/29/16 21:44 Polyethylene Glycol (Miralax) 17 gm HSPRN PRN ORAL Constipation 10/30/16 21:45 11/29/16 21:44 Temazepam (Restoril) 15 mg HSPRN PRN ORAL Insomnia 10/30/16 21:45 11/06/16 21:44 11/01/16 01:17 Allergies: Coded Allergies: DONEPEZIL (Verified Allergy, Unknown, 10/30/16) PROCAINE (Verified Allergy, Unknown, 10/30/16) ROS Limited/Unobtainable: No Constitutional: Reports: no symptoms HEENT: Reports: no symptoms Cardiovascular: Reports: no symptoms Respiratory: Reports: no symptoms Gastrointestinal/Abdominal: Reports: no symptoms Genitourinary: Reports: no symptoms Neurologic/Psychiatric: Reports: no symptoms Subjective 76 YO F admitted for syncope. Cover for Int Regan-Dr Hand. Objective Last Vital Signs Date Time Temp Pulse Resp B/P Pulse Ox O2 Delivery O2 Flow Rate FiO2 11/01/16 12:00 98.2 68 17 134/71 98 Room Air General Appearance: WD/WN, alert EENT: PERRL/EOMI, normal ENT inspection Neck: non-tender, normal alignment, supple, normal inspection Cardiovascular: normal peripheral pulses, normal rate, regular rhythm, no gallop/murmur, no JVD Respiratory/Chest: chest wall non-tender, lungs clear, normal breath sounds, no respiratory distress, no accessory muscle use Abdomen: normal bowel sounds, non tender, soft, no organomegaly, no mass Extremities: normal range of motion 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 ?vasovagal? (5) Nausea and vomiting Assessment/Plan D/C home today. F/U PCP LATOYA GARCIA Nov 01, 2016 14:29
--- NOTE | 2016-11-01 14:38 | Consultation ---
Consult Note Consult Note Cardiology for Dr. Lomas Full consult dictated #[id number] LAURA GOLD Nov 01, 2016 14:38
[2016-11-01 16:00] VITALS: BP 138/78
[2016-11-01] MEDS ORDERED: NovoLOG Insulin Flexpen SUBQ SCH (16:30)
[2016-11-01] MEDS ORDERED: LORazepam Inj 2mg/ml 1ml IV PRN (17:00)
[2016-11-01] MEDS ORDERED: Mylanta II UD 30ml ORAL PRN (17:00)
[2016-11-01] MEDS ORDERED: DuoNeb 0.5-3(2.5)mg/3ml neb HHN PRN (17:00)
[2016-11-01] MEDS ORDERED: Nitroglycerin Subl 0.4mg tab (Bottle Of 25) SL PRN (17:00)
[2016-11-01] MEDS ORDERED: Morphine Sulfate 2mg/ml Inj IVP PRN (17:00)
[2016-11-01] MEDS ORDERED: Miralax 17gm pkt ORAL PRN (17:00)
[2016-11-01] MEDS: NovoLOG Insulin Flexpen SUBQ SCH ×2 (17:30→21:00)
[2016-11-01] MEDS ORDERED: Meclizine 25mg tab ORAL SCH (18:00)
--- NOTE | 2016-11-01 18:25 | Cardiology Report ---
APPROVED REPORT EXAM: Two-dimensional and M-mode echocardiogram with Doppler and color Doppler. INDICATION Left Ventricular Function M-Mode DIMENSIONS IVSd1.1 (0.7-1.1cm)Left Atrium (MM)3.3 (1.6-4.0cm) LVDd4.5 (3.5-5.6cm)Aortic Root2.7 (2.0-3.7cm) PWd0.6 (0.7-1.1cm)Aortic Cusp Exc.1.8 (1.5-2.0cm) LVDs2.2 (2.5-4.0cm) PWs1.6 cm Normal left ventricular chamber size, systolic function and wall motion. Left ventricular ejection fraction estimated to be 55-60 %. No evidence of ventricular hypertrophy. Anterior Echo-free space, may be due to pericardial fat or effusion. All other cardiac chamber sizes are within normal limits. Mild focal aortic valve sclerosis with adequate cusp excursion. Mildly thickened mitral valve leaflets with normal excursion. Mild mitral annulus and aortic root calcification. Normal pulmonic valve structure. Normal tricuspid valve structure. IVC at normal size with physiologic collapse. A color flow and spectral Doppler study was performed and revealed: Mild aortic regurgitation. Mild to moderate mitral regurgitation. Mitral diastolic velocities suggest reduced left ventricular relaxation (Grade I). Mild tricuspid regurgitation. Tricuspid systolic velocities suggests peak right ventricular systolic pressure of 39 mmHg, consistent with mild pulmonary hypertension. Mild pulmonic regurgitation present.
--- NOTE | 2016-11-01 18:56 | Cardiology Report ---
APPROVED REPORT EKG Measurement Heart [id number] Normal sinus rhythm Cannot rule out Anterior infarct, age undetermined Abnormal ECG
[2016-11-01 19:00] VITALS: BP 97/48
[2016-11-01] MEDS ORDERED: Heparin 5000 units/ml inj SUBQ SCH (21:00)
--- NOTE | 2016-11-02 00:18 | Consultation ---
DATE OF CONSULTATION: CARDIOLOGY CONSULT This is a cardiology consult coverage for Dr. Lomas. REASON FOR CONSULT: Syncope. HISTORY OF PRESENT ILLNESS: The patient is a 76-year-old Sudanese woman with a history of hypertension, who was admitted following a syncopal episode. She was in her usual state of health on the morning of admission. She did not eat breakfast, as she had been scheduled for a blood test. She then went to [facility] to attend a function___ and there developed nausea, vomiting, followed by a syncopal episode. She did not experience chest pain, palpitations, or dyspnea. She was hypertensive, blood pressure 168/82, and in normal sinus rhythm, with a pulse of 77 beats per minute. In the emergency room, she was admitted for further monitoring. She has had negative troponin levels, less than 0.03. She is currently without complaints of chest pain, headache, dyspnea, abdominal pain, nausea or palpitations. She denies any previous syncopal episode. MEDICATIONS: Insulin sliding scale, Lexapro 10 mg daily, aspirin 81 mg daily, Norvasc 2.5 mg daily, Plaquenil 200 mg daily, metoprolol-XL 12.5 mg daily subcutaneous, heparin 5000 units q.12 hours, DuoNeb q.4 h hours p.r.n., and Tylenol as needed. ALLERGIES: ARICEPT AND PROCAINE. PAST MEDICAL HISTORY: As noted above. History of hypertension, history of depression, and history of arthritis. SOCIAL HISTORY: The patient lives alone. She is a nonsmoker. She does not drink alcohol. PHYSICAL EXAMINATION: VITAL SIGNS: Blood pressure is 134/71, pulse 68, regular, respirations 18, and afebrile. GENERAL: The patient is alert and well-developed [place]ese female, in no acute distress. HEENT: Normocephalic and atraumatic. Pupils are equal, round, and reactive to light. Sclerae anicteric. Oral mucosa moist. NECK: Supple. There is no jugular venous distention. Carotid pulses are 2+ without bruits. LUNGS: Clear to auscultation bilaterally. HEART: Regular rate and rhythm S1, S2. No murmurs, rubs, S3, or S4. ABDOMEN: Soft, obese, and nontender. No palpable mass. EXTREMITIES: No cyanosis, clubbing, or edema. NEUROLOGICAL: The patient is alert and oriented. Motor is 5/5 upper and lower extremities bilaterally. Light touch sensation intact. Gait, not tested. LABORATORY DATA: Hemoglobin 14.8, white blood count 8100, and platelets 268,000, potassium 4.0, BUN 18, creatinine 0.8, glucose 219. Troponin less than 0.3. TSH 0.6. Total cholesterol 212, LDL 128, and HDL 71. Telemetry strips show sinus rhythm, heart rates in the 60s to 80s. EKG is not currently available. Echo shows normal left ventricular systolic function ejection fraction 55% to 60%. No significant valve lesions. Mild to moderate mitral and mild aortic regurgitation. ASSESSMENTS AND RECOMMENDATIONS: The patient is a 76-year-old woman with a history of hypertension. No previous history of cardiac disease. She was admitted following a syncopal episode, which occurred in the setting of fasting. An EKG will be obtained. However, she does not have any arrhythmias on telemetry and has negative troponins. No evidence for acute coronary syndrome. The etiology of her event was likely a vasovagal episode in the setting of fasting. She has been evaluated by Neurology as well. She has had an echo, which does not show any left ventricular dysfunction or significant valve lesions. From a cardiac standpoint, sending her EKG, I feel it would be safe to discharge her home with outpatient follow up. She is noted to have an elevated blood sugar and this will be followed by her primary physician. She is noted as well to have elevated total and LDL cholesterol and will be started on statin. Talia Woodward M.D. DR: JAE JOB#: [id number] CC: CHRIS
[2016-11-02] MEDS ORDERED: Aspirin EC 81mg tab ORAL SCH (09:00)
--- NOTE | 2016-11-03 08:34 | Cardiology Report ---
APPROVED REPORT EKG Measurement Heart [id number] Normal sinus rhythm Nonspecific T wave abnormality Abnormal ECG
[2016-11-03] MEDS ORDERED: ATORVASTATIN CA10 MG ORAL (09:46)
--- NOTE | 2016-11-03 09:54 | Discharge Summary ---
Discharge Summary Hospital Course Date of Admission Oct 30, 2016 at 17:57 Date of Discharge Nov 01, 2016 at 22:00 Admitting Diagnosis syncope HPI Norma Diallo is a 76 year old female who was admitted on Oct 30, 2016 at 17 :57 for Syncope Hospital Course dc summary # [id number] Discharge Medications New Medications: Atorvastatin Calcium* (Lipitor*) 10 Mg Tablet 10 MG ORAL BEDTIME, #30 TAB Continued Medications: Amlodipine Besylate* (Amlodipine Besylate*) 2.5 Mg Tablet 2.5 MG ORAL DAILY, TAB Escitalopram Oxalate* (Lexapro*) 10 Mg Tablet 10 MG ORAL DAILY, TAB Hydroxychloroquine Sulfate* (Plaquenil*) 200 Mg Tablet 200 MG ORAL DAILY, #30 TAB Metoprolol Succinate* (Metoprolol Succinate*) 25 Mg Tab.er.24h 12.5 MG ORAL DAILY, TAB Discharge Condition Upon Discharge: stable Discharge Disposition Patient was discharged to Home (01) Discharge Diagnoses: Discharge Instructions Discharge Instructions Special Instructions I have been assigned to complete a D/C Summary on this account. I was not involved in the patient management Aneta Blanco NP (Vanchtein) Nov 03, 2016 09:54
--- NOTE | 2016-11-03 23:39 | Discharge Summary 2 SIG ---
DATE OF ADMISSION: 10/30/2016 DATE OF DISCHARGE: 11/01/2016 REASON FOR ADMISSION: 76-year-old female was brought in by ambulance after having like a syncopal episode following nausea and vomiting. No head trauma, no injury was sustained. The patient complained of chills and shaking. No chest pain. No shortness of breath. No abdominal pain. No palpitations. Workup in the emergency room revealed negative troponin. No leukocytosis. Stable hemoglobin and hematocrit. The patient refused chest x-ray. EKG showed normal sinus rhythm. No ischemic changes. CT head was negative for evidence of any acute intracranial pathology. Zofran given Zofran , no further vomiting, Started on gentle IV fluids. Glucose 195. Patient transferred to telemetry for further management. ADMITTING DIAGNOSES: 1. Syncopal episode. 2. Nausea. 3. Vomiting. 4. Hyperglycemia. HOSPITAL STAY: The patient was admitted to telemetry floor. Neurology, cardiology and pulmonary consults were requested. Supplemental oxygen and pulmonary toilet provided as needed. Neurologist followed the patient. The patient was started on aspirin and statin. Carotid duplex was essentially negative. CT head done in ER was negative. The patient started to work with physical and occupational therapists. Fall precaution were maintained. The patient was able to walk independently. Per neurologist, no evidence of orthostatic blood pressure changes. Per neurologist, syncopal episode was likely vasovagal secondary to prior fasting. Neurologist cleared the patient for discharge. Neurological status was stable. Nutritional Services Director followed the patient as well. Per closer on, no evidence of arrhythmia, telemetry negative and negative troponin. No evidence of acute coronary syndrome. Nutritional Services Director felt that the syncope was likely a vasovagal episode in the setting of fasting as well and concurred with neurologist in regards of etiology of syncope. Echocardiogram revealed preserved ejection fraction of 55% to 60% and right ventricular systolic pressure of 39 consistent with a mild pulmonary hypertension, mild valvular disease with a mild aortic regurgitation, mild to moderate mitral regurgitation, and mild tricuspid regurgitation. Echocardiogram did not reveal any left ventricular dysfunction or significant valvular lesion. From a cardiac standpoint, the patient was stable for discharge home as well. Lipid panel revealed elevated total and LDL cholesterol. The patient was started on low dose statin. Nausea and vomiting resolved, able to tolerate diet. The patient with a history of subcutaneous lupus erythematosus and was taking Plaquenil daily. Rheumatoid factor as well as the DARLINE panel were checked, all negative. Blood pressure was managed with calcium-channel cass and beta-cass, was stable. The patient was stable for discharge. Encourage oral fluids. Hemoglobin A1c was checked in lieu of hyperglycemia on admission, HgA1c was 5.4, which ruled the patient out for diabetes. DISCHARGE DIAGNOSES: 1. Syncopal episode, vasovagal. 2. Hypertension. 3. Mild pulmonary hypertension. 4. 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 6. Hypercholesterolemia. 7. Depression. DISCHARGE MEDICATIONS: See medication reconciliation list. DISCHARGE INSTRUCTIONS: Follow up with the primary medical doctor next week. Bj Hand M.D. I have been assigned to dictate discharge summary on this account and I was not involved in the patient's management. Aneta SinghGarnet HealthAngela NRexPRex DR: APRYL JOB#: [id number] CC: CHRIS
--- NOTE | 2016-11-12 10:37 | Diagnostic Imaging Report ---
APPROVED REPORT CPT Code: 57432 Vascular Symptoms CVA/TIA: Doppler Spectral Velocity Analysis RightLeft BILATERAL: CCA/BULB - Imaging reveals irregular, minimal plaque in both carotid bulbs. arteries. The Doppler spectral flow analysis is within normal limits throughout the internal and external carotid arteries. VERTEBRALS - Imaging reveals both vertebral arteries to be patent, without evidence of stenosis or steal.
== END 2016-11-01 22:00 | disposition home or self-care (01) | DRG 312 ==
LOC: ENRESERVDT → ENRESERVTM → EDBD 16:38 → EMR 17:52 → 2E 17:57 → EDBEDREQ 18:04 → 4E 11-01 15:36
DX: R55 Syncope and collapse (principal); G93.40 Encephalopathy, unspecified; I27.2 Other secondary pulmonary hypertension; I08.3 Combined rheumatic disorders of mitral, aortic and tricuspid valves; R11.2 Nausea with vomiting, unspecified; R26.9 Unspecified abnormalities of gait and mobility; I10 Essential (primary) hypertension; F32.9 Major depressive disorder, single episode, unspecified; R73.9 Hyperglycemia, unspecified; L93.1 Subacute cutaneous lupus erythematosus; E78.5 Hyperlipidemia, unspecified; R53.1 Weakness; Z88.8 Allergy status to other drugs, medicaments and biological substances
CPT/HCPCS: 36415; 70450; 71010; 80053; 80061; 82550; 82553; 82607; 82962; 83036; 84443; 84484; 85007; 85025; 85610; 85730; 86039; 86431; 93005; 93306; 93880; 94664; J1815; J2405